=== PATIENT | male | born 1945 | race Caucasian/White ===

== ENCOUNTER → 2018-01-23 | Emergency (ER) | END | disposition home or self-care (01) ==

== ENCOUNTER 2018-09-26 10:35 | Emergency (ER) | payer MEDICARE, OTHER ==
[~2018-09-26] VITALS: Ht 170.2 cm; Wt 95.0 kg
[~2018-09-26 10:35] MED LIST: ASPI-676 PO; BENA20TA4 PO; CYMBALTA; HYDR-1666 PO; PRAM1.5T8 PO; SIN25100 PO; TEMA30CA6 PO; same meds
[2018-09-26 10:48] VITALS: Ht 170.2 cm; Wt 95.0 kg
[2018-09-26] MEDS ORDERED: CARB1TAB46 PO (11:19)
[2018-09-26] MEDS ORDERED: ROTI1PAT7 TD (11:19)
[2018-09-26] MEDS ORDERED: SIME80TA16 PO (11:20)
[2018-09-26] MEDS ORDERED: ASPI81TA50 PO (11:20)
[2018-09-26] MEDS ORDERED: COLC0.6T6 PO (11:21)
[2018-09-26] MEDS ORDERED: DICL100G37 TOP (11:22)
[2018-09-26] MEDS ORDERED: LINA145C PO (11:22)
[2018-09-26] MEDS ORDERED: BENA20TA4 PO (11:23)
[2018-09-26] MEDS ORDERED: ATOR20TA38 PO (11:23)
[2018-09-26] MEDS ORDERED: CARV12.579 PO (11:26)
[2018-09-26] MEDS ORDERED: BISA5TAB6 PO (11:26)
[2018-09-26] MEDS ORDERED: FURO40TA4 PO (11:27)
[2018-09-26] MEDS ORDERED: ESOM40CA PO (11:27)
[2018-09-26] MEDS ORDERED: MIRT30TA5 PO (11:28)
[2018-09-26] MEDS ORDERED: TRIH2TAB2 PO (11:28)
--- NOTE | 2018-09-26 12:12 | ERD ---
ER Documentation Chief Complaint Chief Complaint AP AFTER TAKING CARBIDOPA/LEVIDOPA THIS MORNING HPI This is a 73-year-old male with a history of Parkinson's, hypertension who presents to the emergency room with his , and 2 sons for evaluation of abdominal pain. The patient states that he is taking carbidopa for his Parkinson's and had some abdominal pain this morning. The patient localizes the pain to the midportion of his abdomen denies any nausea, vomiting, diarrhea, chest pain, shortness of breath, or fever associated with this. ROS All systems reviewed and are negative except as per history of present illness. Medications Home Meds Reported Medications Trihexyphenidyl Hcl* (Trihexyphenidyl Hcl*) 2 Mg Tab, 2 MG PO TID, #90 TAB 09/26/18 Mirtazapine* (Mirtazapine*) 30 Mg Tablet, 30 MG PO HS, TAB 09/26/18 Furosemide* (Furosemide*) 40 Mg Tablet, 40 MG PO DAILY, TAB 09/26/18 Esomeprazole Mag Trihydrate (Nexium) 40 Mg Capsule.dr, 40 MG PO DAILY, #30 CAP 09/26/18 Carvedilol* (Carvedilol*) 12.5 Mg Tablet, 12.5 MG PO BID, #60 TAB 09/26/18 Bisacodyl* (Bisacodyl*) 5 Mg Tablet.dr, 10 MG PO BID PRN for CONSTIPATION, TAB 09/26/18 Benazepril Hcl* (Benazepril Hcl*) 20 Mg Tablet, 20 MG PO BID, #60 TAB 09/26/18 Atorvastatin Calcium* (Atorvastatin Calcium*) 20 Mg Tablet, 20 MG PO QHS, #30 TAB 09/26/18 Diclofenac Sodium* (Voltaren* Gel) 1% -100 Gm Gel, 2 GM TOP QID, #1 TUB 09/26/18 Linaclotide (LINZESS) 145 Mcg Capsule, 145 MCG PO DAILY, #30 CAP 09/26/18 Colchicine* (Colcrys*) 0.6 Mg Tablet, 0.6 MG PO QID, TAB 09/26/18 Aspirin (Aspir-Low) 81 Mg Tablet.dr, 81 MG PO DAILY 09/26/18 Simethicone (Mi-Acid) 80 Mg Tab.chew, 80 MG PO TID, TAB.CHEW 09/26/18 Rotigotine (NEUPRO) 1 Each Patch.td24, 1 EACH TD DAILY 09/26/18 Carbidopa/Levodopa (CARBIDOPA-LEVO 25-100 MG ODT) 1 Each Tab.rapdis, 1 TAB PO DAILY, #120 TAB 09/26/18 Discontinued Reported Medications [same meds] No Conflict Check 08/18/12 [Cymbalta] No Conflict Check 01/28/12 Carbidopa-Levodopa* (Sinemet*) 1 Tab Tab, 1 TAB PO TID 01/27/11 Pramipexole* (Mirapex*) 1.5 Mg Tablet, 1.5 MG PO TID 01/27/11 Hydrocodone Bit/Acetaminophen (Vicodin 5/500 Tablet) 1 Tab Tablet, 1 TAB PO PRN 4 HRS 01/27/11 Temazepam* (Restoril*) 30 Mg Capsule, 30 MG PO NIGHLTY 01/27/11 Benazepril Hcl* (Benazepril Hcl*) 20 Mg Tablet, 20 MG PO DAILY 01/27/11 Aspirin (Jelly Child) 81 Mg Chew, 81 MG PO DAILY 01/27/11 Allergies Allergies: Coded Allergies: No Known Allergy (Verified , 09/26/18) PMhx/Soc History of Surgery: Yes (L3/L4 /APPY) Anesthesia Reaction: No Hx Neurological Disorder: Yes (HX CVA/PARKINSON) Hx Respiratory Disorders: No Hx Cardiac Disorders: No Hx Miscellaneous Medical Probl: Yes (PARKINSONS) Hx Alcohol Use: No Hx Substance Use: No Hx Tobacco Use: No Physical Exam Vitals Vital Signs Date Temp Pulse Resp B/P (MAP) Pulse Ox O2 O2 Flow FiO2 Time Delivery Rate 09/26/18 98.5 80 16 180/83 100 10:48 (115) Physical Exam INITIAL VITAL SIGNS: Reviewed by me GENERAL: The patient is well developed and appropriate for usual state of health in no apparent distress HEENT: Pupils equal, round, and reactive to light. EOMI. There is no scleral icterus. NECK: C-spine is soft and supple, there is no meningismus. There is no cervical lymphadenopathy. LUNGS: Clear to auscultation bilaterally. There are no rales, wheezes or rhonchi. HEART: Regular rate and rhythm, no murmurs, clicks, rubs or gallops. ABDOMEN: Soft, non-tender, non-distended. There are bowel sounds in all four quadrants. No rebound or guarding. EXTREMITIES: There is no peripheral cyanosis or edema. No focal swelling or erythema. NEUROLOGICAL: The patient moves all four extremities with 5/5 strength. Cranial nerves II - XII are intact. Normal gait. Alert and oriented SKIN: Stimulator implant in place on the right anterior chest wall, there is no apparent rash or petechiae. HEME/LYMPHATIC: There is no evidence of excessive bruising or lymphedema. PSYCHIATRIC: The patient does not appear anxious or depressed. Result Diagram: 09/26/18 1115 09/26/18 1115 Results 24 hrs Laboratory Tests Test 09/26/18 11:15 White Blood Count 8.2 10^3/ul Red Blood Count 4.03 10^6/ul Hemoglobin 12.2 g/dl Hematocrit 36.7 % Mean Corpuscular Volume 91.1 fl Mean Corpuscular Hemoglobin 30.3 pg Mean Corpuscular Hemoglobin Concent 33.2 g/dl Red Cell Distribution Width 13.5 % Platelet Count 223 10^3/UL Mean Platelet Volume 10.1 fl Immature Granulocytes % 0.400 % Neutrophils % 46.4 % Lymphocytes % 39.2 % Monocytes % 11.5 % Eosinophils % 1.9 % Basophils % 0.6 % Nucleated Red Blood Cells % 0.0 /100WBC Immature Granulocytes # 0.030 10^3/ul Neutrophils # 3.8 10^3/ul Lymphocytes # 3.2 10^3/ul Monocytes # 1.0 10^3/ul Eosinophils # 0.2 10^3/ul Basophils # 0.1 10^3/ul Nucleated Red Blood Cells # 0.0 10^3/ul Urine Color STRAW Urine Clarity CLEAR Urine pH 6.0 Urine Specific [place] 1.002 Urine Ketones NEGATIVE mg/dL Urine Nitrite NEGATIVE mg/dL Urine Bilirubin NEGATIVE mg/dL Urine Urobilinogen NEGATIVE mg/dL Urine Leukocyte Esterase NEGATIVE Sajan/ul Urine Microscopic RBC 0 /HPF Urine Microscopic WBC 0 /HPF Urine Hemoglobin 1+ mg/dL Urine Glucose NEGATIVE mg/dL Urine Total Protein NEGATIVE mg/dl Sodium Level 140 mmol/L Potassium Level 4.3 mmol/L Chloride Level 106 mmol/L Carbon Dioxide Level 23 mmol/L Anion Gap 11 Blood Urea Nitrogen 17 mg/dl Creatinine 1.21 mg/dl Est Glomerular Filtrat Rate mL/min mL/min Glucose Level 96 mg/dl Calcium Level 9.2 mg/dl Total Bilirubin 0.2 mg/dl Direct Bilirubin 0.00 mg/dl Indirect Bilirubin 0.2 mg/dl Aspartate Amino Transf (AST/SGOT) 20 IU/L Alanine Aminotransferase (ALT/SGPT) 12 IU/L Alkaline Phosphatase 51 IU/L Troponin I < 0.012 ng/ml Total Protein 7.5 g/dl Albumin 4.4 g/dl Globulin 3.10 g/dl Albumin/Globulin Ratio 1.41 Lipase 185 U/L Procedures/MDM Chest X-ray 1V Interpreted by me: Soft Tissue: No acute abnormalities Bones: No acute abnormalities Mediastinum/Cardiac Silhouette/Lungs: [No acute abnormalities] CT abdomen pelvis without: No evidence of urolithiasis, obstructive uropathy or diverticulitis. Nonvisualization appendix. Vascular calcifications. Degenerative disc disease lumbar spine.. This 73-year-old male presents to the emergency room with his family members for evaluation of abdominal pain. On my exam the patient has no abdominal distention, no tenderness, he sitting in bed comfortably and in no acute distress. His family member state that they were more concerned because his blood pressure was slightly elevated before he came to the ER. He stated that his blood pressure was 180/84 he normally runs around 160. The patient is denying any complaints at this time and states he is feeling okay denies any pain. The patient had lab work drawn including a troponin which is normal. Chest x-ray is clear, CT of the abdomen pelvis shows no intra-abdominal pathology and the patient will be discharged in the care of his family at this time. The patient's blood pressure is 1 50 4/64 at this time and family members do feel comfortable with the plan of care. Differential diagnoses entertained was broad with potential high acuity. Patient has been evaluated for appendicitis, cholecystitis, and other high risk medical and surgical causes of abdominal pain. Ultimately the patient's evaluation is nondiagnostic. Based on the patient's lack of risk factors, as well as the patient's clinical, laboratory, and imaging data, the patient appears to be low risk for these high risk causes of abdominal pain. Departure Diagnosis: Primary Impression: Abdominal pain Additional Impression: Parkinsons disease Condition: Stable DOROTHEA BOSTON DO Sep 26, 2018 12:12
[2018-09-26 12:20] VITALS: BP 149/87; PULSE 71; RESP 20
== END 2018-09-26 12:21 | disposition home or self-care (01) ==
LOC: E/R 10:35
DX: G20 Parkinson's disease (principal); Z79.82 Long term (current) use of aspirin
CPT/HCPCS: 36415; 71045; 74176; 80053; 81001; 83690; 84484; 85025